=== PATIENT | male | born 1995 | race Caucasian/White ===

== ENCOUNTER → 2023-11-25 | Outpatient (CLI) | payer OTHER, SELFPAY ==
--- OUTSIDE RECORDS SUMMARY | 2023-11-25 11:15 | XMS RPT_ITS | CCD ---
Author Name Unknown Address [address] [place] [address] Organization [facility] Results Test Name Value Interpretation Reference Range Facil ity Progress note 07-27-2021 Note Date & Type Note Facility 07-27-2021 Note HNO ID: [id number] Author: David Leyva MD Service: ? Author Type: Physician Type: Progress Notes Filed: 07/27/2021 8:21 PM Note Text: Patient presents with: Urinary Problem: frequency and pain with urination x 2 days HPI: Symptoms for 3 days. Dysuria: Yes Frequency: Yes Hematuria: Yes Discharge: Initially yellow pus Nausea: Yes Fever or chills: Yes with malaise Back pain: Yes-bilateral lower, initially started on the left Abdominal pain: some Prior UTI: No Personal history of kidney stones: No Family history of kidney stones: father Taking AZO and OTC pain medicine. His has been getting frequent urinary tract infections. He denies any concern for STI. PAST MEDICAL HISTORY Diagnosis Date - NEGATIVE MEDICAL HISTORY PAST SURGICAL HISTORY Procedure Laterality Date - REMOVE TONSILS/ADENOIDS,<12 Y/O MEDICATIONS: No current outpatient medications on file. No current facility-administered medications for this visit. ALLERGIES: ALLERGIES No Known Allergies VITALS: BP 122/72 Pulse 70 Temp 37.6 ?C (99.7 ?F) Resp 16 Wt 78.9 kg (174 lb) SpO2 96% PHYSICAL EXAM: GEN: NAD HEENT: EOMI, conjunctiva clear, moist mucous membranes HEART: regular rate and rhythm, no murmurs LUNGS: clear to auscultation, no wheezes or crackles, no increased WOB ABDOMEN: Soft, nondistended, no masses, bilateral lower abdominal discomfort with palpation BACK: No CVA tenderness, left lower lumbar tenderness ASSESSMENT/PLAN: 1. Pain with urination - ICD9: 788.1, ICD10: R30.9 (primary diagnosis) 2. Urethral discharge in male - ICD9: 788.7, ICD10: R36.9 - UA DIP, URINE (POC) Large blood, LE, and nitrite. - URINE CULTURE - CEFTRIAXONE 500 MG SOLUTION FOR INJECTION given in office to cover gonorrhea - DOXYCYCLINE MONOHYDRATE 100 MG CAPSULE - GC/CHLAMYDIA DNA DET refuses urethral swab-send from urine sample. Will notify of results and further recommendations. Follow-up in the ER with worsening fever, chills, abdominal pain, back pain, or lethargy. David Leyva MD [facility] Summary Purpose Family History No Family History Records Found Advance Directives No Advanced Directives Records Found Additional Source Comments (unrecognized sect ion and content) No Status Records Found INFORMATION SOURCE (unrecogn ized section and content) FOR RECORDS PERTAINING TO PATIENTS WHO ARE OR HAVE BEEN ENROLLED IN A CHEMICAL DEPENDENCY/SUBSTANCEABUSE PROGRAM, SOME INFORMATION MAY BE OMITTED. This clinical summary was aggregated from multiple sources. Caution should be exercised in using it in the provision of clinical care. This summary normalizes information from multiple sources, and as a consequence, information in this document may materially change the coding, format and clinical context of patient data. In addition, data may be omitted in some cases. CLINICAL DECISIONS SHOULD BE BASED ON THE PRIMARY CLINICAL RECORDS. [employer] provides no warranty or guarantee of the accuracy or completeness of information in this document.
[2023-11-25 12:43] LABS: Erythrocyte Sedimentation Rate 8 mm/hr (0-20)
[2023-11-25 12:44] LABS: Absolute Lymphocyte Count 1.46 X10^3/uL (0.83-4.51); Absolute Neutrophil Count 4.5 X10^3/uL (2.0-7.7); Basophil# 0.03 X10^3/uL; Basophil% 0.4 % (0-1); Eosinophil# 0.03 X10^3/uL; Eosinophils% 0.4 % (0-5); Hematocrit 41.8 % (40-54); Hemoglobin 14.1 g/dL (13.0-16.5); Lymphocyte # 1.46 X10^3/ul (0.83-4.51); Mean Corp Hgb Conc 33.7 g/dL (32-36); Mean Corpuscular Hgb 29.2 pg (27.0-32.0); Mean Corpuscular Volume 86.5 fL (80-94); Mean Platelet Vol. 8.9 fl (6.2-12.0); Monocyte# 0.94 X10^3/uL; Monocyte% 13.5 % (0-10); NRBC Flagged by Analyzer 0 % (0-5); Neutrophil # 4.46 X10^3/uL (2.7-7.7); Neutrophil % 64.4 % (47-70); Platelet Count 323 K/mm3 (150-450); RBC Distribution Width SD 40.9 fl (35.1-43.9); Red Blood Count 4.83 M/mm3 (4.6-6.2); White Blood Count 6.9 K/mm3 (4.4-11.0)
[2023-11-25 13:08] LABS: Vitamin B12 416 pg/mL (211-911); Vitamin D,25 Hydroxy 46.4 ng/mL
[2023-11-25 13:37] LABS: AST(SGOT) 15 U/L (15-37); Alanine Aminotransfer ALT/SGPT 32 U/L (16-61); Alkaline Phosphatase 63 U/L (45-117); Anion Gap 6 (5-15); BUN 19 mg/dL (7-18); BUN/Creat Ratio 18.6 RATIO (10-20); CRP 8.36 mg/L (0.0-3.0); Calcium,Total 9.2 mg/dL (8.5-10.1); Chloride 107 mmol/L (98-107); Creatinine, Serum 1.02 mg/dL (0.70-1.30); EST Glomerular Filtration Rate 91 mL/min (>60); Est Glom Filt Rate - Afr Amer 110 mL/min (>60); Ferritin 202 ng/mL (26-388); Globulin 3.9 g/dL (2.2-4.2); Glucose 95 mg/dL (74-106); Iron 38 ug/dL (65-175); Potassium 3.8 mmol/L (3.5-5.1); Protein, Total 7.9 g/dL (6.4-8.2); Sodium Level 140 mmol/L (136-145)
== END | disposition home or self-care (01) ==
LOC: BFHLAB 10:45
PROVIDERS: PCP Nurse Practitioner Family; Visit Provider Nurse Practitioner Family
DX: Z00.00 Encounter for general adult medical examination without abnormal findings (principal); K12.0 Recurrent oral aphthae
CPT/HCPCS: 36415; 80053; 82306; 82607; 82728; 83540; 85025; 85652; 86140

== ENCOUNTER → 2025-06-25 | Outpatient (CLI) | payer OTHER, SELFPAY ==
--- NOTE | 2025-06-25 14:00 | VAS_PTH ---
PATIENT: KRISTY CARLISLE LOC: DO U#:[id number] AGE/SX: 29/M ROOM: RE06/25/[address]: Dr. Lv Tesfaye MD : 1995 BED: DIS: 06/25/2025 SPEC #: [id number] RECD: 06/25/25 15:14 STATUS: BALJIT LIV #: [id number] RUBÉN: 06/25/25 14:[address]: Lv Tesfaye DEPT: SURGICAL PATHOLOGY RECD BY: Chavo Rajan ENTERED: 06/28/25 08:22 SP TYPE: VAS OTHR DR: Dr. Hansa Saldaña MD Tissues: A - Vas deferens, NOS B - Vas deferens, NOS Procedures: Surgery Specimen Level II HEADER OPERATION: Bilateral partial vasectomy PRE-OP DIAGNOSIS: Sterilization TISSUE SUBMITTED: A- Right vas deferens, B- Left vas deferens MICROSCOPIC DIAGNOSIS A. Vas deferens, right, partial vasectomy: - Complete luminal cross-section confirmed. B. Vas deferens, left, partial vasectomy: - Complete luminal cross-section confirmed. MICROSCOPIC DESCRIPTION Slides are reviewed. GROSS DESCRIPTION Received in 2 formalin containers labeled with the patient's name and date of . Designated as: A. R vas deferens is a perez-white, rubbery cylindrical portion of tissue, 1.2 cm in length by 0.3 cm in diameter. The specimen is inked blue and serially sectioned. Entirely submitted in 1 cassette. B. L vas deferens is a perez-white, rubbery cylindrical portion of tissue, 0.7 cm in length by 0.3 cm in diameter. The specimen is inked black and serially sectioned. Entirely submitted in 1 cassette. OR 06/25/2025 CPT:56426v8
== END | disposition home or self-care (01) ==
LOC: LABSPEC 15:30
PROVIDERS: PCP Family Medicine; Referring Provider Surgery; Visit Provider Surgery
DX: Z30.2 Encounter for sterilization (principal)
CPT/HCPCS: 88302

== ENCOUNTER → 2025-09-30 | Outpatient (CLI) | payer OTHER, SELFPAY | END | disposition home or self-care (01) | PROVIDERS: PCP Family Medicine; Visit Provider Surgery | DX: Z30.2 Encounter for sterilization (principal) ==